=== PATIENT | male | born 1985 | race African-American/Black ===

== ENCOUNTER 2023-06-02 15:03 | Inpatient (IN) | payer OTHER ==
[2023-06-02 15:50] VITALS: BMI 25.5
[2023-06-02] MEDS ORDERED: BISMUTH SUBSALICYLATE 524 MG/30 ML PO PRN (16:39)
[2023-06-02] MEDS ORDERED: POLYETHYLENE GLYCOL (HEALTHYLAX) 3350 17 GM PACKET PO PRN (16:39)
[2023-06-02] MEDS ORDERED: LOPERAMIDE HCL 2 MG CAPSULE PO PRN (16:39)
[2023-06-02] MEDS ORDERED: P-EPHED 60MG/TRIPROLIDI 2.5MG TABLET PO PRN (16:39)
[2023-06-02] MEDS ORDERED: ONDANSETRON *ODT* 4 MG TABLET SL PRN (16:39)
[2023-06-02] MEDS ORDERED: BENZOCAINE/MENTHOL (CHLORASEPTIC ) LOZENGE MM PRN (16:39)
[2023-06-02] MEDS ORDERED: NICOTINE POLACRILEX 2 MG GUM BUC PRN (16:39)
[2023-06-02] MEDS ORDERED: BENZONATATE 200 MG CAPSULE PO PRN (16:39)
[2023-06-02] MEDS ORDERED: MAG HYDROX/AL HYDROX/SIMETH 30 ML UNIT-DOSE CUP PO PRN (16:39)
[2023-06-02] MEDS ORDERED: cloNIDine HCL 0.1 MG TABLET PO ONE (17:01)
[2023-06-02] MEDS ORDERED: cloNIDine HCL 0.1 MG TABLET ONE (20:15)
[2023-06-02] MEDS ORDERED: LORazepam 2 MG TABLET ONE (20:16)
[2023-06-02] MEDS: LORazepam 2 MG TABLET PO SCH ×2 (20:25→22:43)
[2023-06-02] MEDS: THIAMINE HCL 100 MG TABLET (FP) PO SCH (22:39)
[2023-06-02] MEDS: MELATONIN 5 MG TABLETS PO SCH (22:39)
[2023-06-02] MEDS: guaiFENesin 200 MG/10 ML 10 ML UNIT-DOSE CUPS PO PRN (22:41)
[2023-06-02] MEDS: METHOCARBAMOL 500 MG TABLET PO PRN (22:45)
[2023-06-03] MEDS: levETIRAcetam 500 MG TABLET (FP) PO SCH ×3 (00:31→22:49)
[2023-06-03] MEDS: guaiFENesin 200 MG/10 ML 10 ML UNIT-DOSE CUPS PO PRN ×3 (03:59→19:11)
[2023-06-03] MEDS: LORazepam 1 MG TABLET PO PRN (03:59)
[2023-06-03] MEDS: LORazepam 2 MG TABLET PO SCH ×4 (06:29→23:50)
[2023-06-03] MEDS: METHOCARBAMOL 500 MG TABLET PO PRN (06:30)
[2023-06-03] MEDS: ACETAMINOPHEN 325 MG TABLET (FP) PO PRN ×3 (06:32→17:42)
[2023-06-03] MEDS: guaiFENesin 600 MG TABLET.ER (FP) PO PRN ×2 (06:32→19:10)
[2023-06-03] MEDS: INSULIN SLIDING SCALE (NOVOLOG) 1 VIAL SQ SCH ×4 (07:03→22:49)
[2023-06-03] MEDS ORDERED: ALBUTEROL SO4 HFA INHALER IH PRN (08:07)
[2023-06-03] MEDS: LOSARTAN POTASSIUM 50 MG TABLET PO SCH (10:43)
[2023-06-03] MEDS: PRENATAL VITAMINS W/ FOLIC ACID TABLET (FP) PO SCH (10:43)
[2023-06-03] MEDS: LORATADINE 10 MG TABLET PO SCH (10:43)
[2023-06-03] MEDS: NICOTINE 7 MG/24 HOURS TOPICAL PATCH TD SCH (10:44)
[2023-06-03] MEDS: hydrALAZINE HCL 50 MG TABLET (FP) PO SCH ×2 (14:56→22:49)
[2023-06-03] MEDS: metFORMIN HCL 500 MG TABLET (FP) PO SCH (17:30)
[2023-06-03] MEDS: MAGNESIUM HYDROX 2400MG/30ML ORAL SUSPENSION 30 ML CUP PO PRN (19:13)
[2023-06-03] MEDS ORDERED: MOMETASONE FUROATE 220 MCG/IH INHALER IH SCH (22:00)
[2023-06-03] MEDS ORDERED: HALOPERIDOL 5 MG TABLET PO SCH (22:00)
[2023-06-03] MEDS: THIAMINE HCL 100 MG TABLET (FP) PO SCH (22:49)
[2023-06-03] MEDS: MELATONIN 5 MG TABLETS PO SCH (22:49)
[2023-06-04] MEDS: LORazepam 1 MG TABLET PO PRN (01:42)
[2023-06-04] MEDS: LORazepam 1 MG TABLET PO SCH ×2 (05:50→10:35)
[2023-06-04] MEDS: hydrALAZINE HCL 50 MG TABLET (FP) PO SCH (06:13)
[2023-06-04] MEDS: metFORMIN HCL 500 MG TABLET (FP) PO SCH (06:13)
[2023-06-04] MEDS: MAGNESIUM HYDROX 2400MG/30ML ORAL SUSPENSION 30 ML CUP PO PRN (06:17)
[2023-06-04] MEDS: METHOCARBAMOL 500 MG TABLET PO PRN (06:17)
[2023-06-04] MEDS: ACETAMINOPHEN 325 MG TABLET (FP) PO PRN (06:22)
[2023-06-04] MEDS: INSULIN SLIDING SCALE (NOVOLOG) 1 VIAL SQ SCH (06:22)
[2023-06-04] MEDS: guaiFENesin 200 MG/10 ML 10 ML UNIT-DOSE CUPS PO PRN (06:23)
[2023-06-04] MEDS ORDERED: cloNIDine HCL 0.1 MG TABLET PO ONE (08:00)
[2023-06-04 09:26] VITALS: BP 151/98; PULSE 89; RESP 18; TEMP 97.8
[2023-06-04] MEDS: LORATADINE 10 MG TABLET PO SCH (09:46)
[2023-06-04] MEDS: NICOTINE 7 MG/24 HOURS TOPICAL PATCH TD SCH (09:46)
[2023-06-04] MEDS: LOSARTAN POTASSIUM 50 MG TABLET PO SCH (09:46)
[2023-06-04] MEDS: levETIRAcetam 500 MG TABLET (FP) PO SCH (09:46)
[2023-06-04] MEDS: PRENATAL VITAMINS W/ FOLIC ACID TABLET (FP) PO SCH (10:35)
[2023-06-05] MEDS ORDERED: LORazepam 0.5 MG TABLET PO PRN
[2023-06-05] MEDS ORDERED: LORazepam 0.5 MG TABLET PO SCH (05:00)
[2023-06-06] MEDS ORDERED: LORazepam 0.5 MG TABLET PO ONE (05:00)
== END 2023-06-04 09:48 | disposition left against medical advice (07) | DRG 894 ==
LOC: YASAS 15:03 → Y3N 16:43
PROVIDERS: ADMIT Allergy & Immunology; ATTEND Surgery
PROC: HZ2ZZZZ Detoxification Services for Substance Abuse Treatment (ICD-10-PCS; principal; 2023-06-02)
DX: F10.230 Alcohol dependence with withdrawal, uncomplicated (principal); F14.20 Cocaine dependence, uncomplicated; F17.210 Nicotine dependence, cigarettes, uncomplicated; F25.9 Schizoaffective disorder, unspecified; F31.9 Bipolar disorder, unspecified; I10 Essential (primary) hypertension; J45.20 Mild intermittent asthma, uncomplicated; K21.9 Gastro-esophageal reflux disease without esophagitis; M54.50 Low back pain, unspecified; G89.29 Other chronic pain; Z88.8 Allergy status to other drugs, medicaments and biological substances; Z88.6 Allergy status to analgesic agent
CPT/HCPCS: 82962; 87635